=== PATIENT | male | born 1980 | race Caucasian/White ===

== ENCOUNTER 2016-06-26 14:28 | Emergency (ER) | payer MEDICARE, MEDICAID ==
[2016-06-26 14:43] VITALS: BP 136/82
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
[2016-06-26] MEDS ORDERED: diphenhydrAMINE 50 MG/ML SDV IM ONE (16:13)
[2016-06-26] MEDS ORDERED: Haloperidol Lactate 5 MG/ML SDV IM ONE (16:14)
[2016-06-26] MEDS ORDERED: LORazepam 2 MG/ML MDV IM ONE (16:15)
--- NOTE | 2016-06-28 09:19 | CONS ---
DATE OF SERVICE: 06/26/2016 REFERRING PHYSICIAN: CONSULTING PHYSICIAN: Didier Mcgregor MD This is a 60-minute emergency room clinical event. IDENTIFICATION: The patient is a 35-year-old male, who presents to the [facility] Emergency Room in [place], [place], on June 26, 2016. He is seen for psychiatric consultation after being evaluated by emergency room staff. CHIEF COMPLAINT: "I have got PTSD. Issues with someone that was being unprofessional in the work place." HISTORY OF PRESENT ILLNESS: The patient is a 35-year-old male who, according to staff, has a long history of mental illness, who has been off his psychiatric medications for the past month now. He is brought in by law enforcement on a voluntary basis after his [facility] worker had become concerned upon a visit to his house that he had not been thinking or acting correctly. On initial interview with the emergency room staff, the patient is stating that he does not feel that he will get a thorough evaluation and is requesting additional consultation. On additional consultation, the patient is stating that he has not "slept in like 3 days." He also states that he has been using marijuana and observes "I don't think that is illegal in [place], is it?" He states he has had a lot of stressors that have been preventing him from sleeping and also has been using marijuana. He states that he is supposed to be taking some psychiatric medications because "some people think that I need that," but he does state that he has not taken these medications in over a month. He denies being suicidal or homicidal. He does endorse a lot of racing thoughts, and he states that sometimes he can get pretty suspicious and paranoid, but he feels that it is with good reason. He is not really sure of the date when asked, and he is not able to provide many more answers when I asked him. He begins to ask questions back to the provider. When asked about his age, he is stating "well, how old do you think I am." When asked about the date, he is stating "well, what date do you think it is." Labs came back normal according to emergency room staff with the exception of positive cannabis on the patient's drug screen. MEDICATIONS: Medication at the time of presentation: 1. Latuda 60 mg daily. 2. Depakote 1000 mg daily. 3. BuSpar 10 mg b.i.d., but again the patient is stating that he has not taken these medications in over a month. ALLERGIES: 1. RISPERDAL. 2. WHEAT. PAST MEDICAL HISTORY: The patient reports a remote past history of a right leg fracture. REVIEW OF SYSTEMS: Asides from musculoskeletal, all other major organ systems are negative at this point in time for any acute difficulties or complications. FAMILY PSYCHIATRIC AND CD HISTORY: None reported. PAST PSYCHIATRIC AND CD HISTORY: The patient is reporting some past psychiatric hospitalizations, but nothing specific. Past psychiatric medication history is positive as well, but again specific is not provided. Past psychiatricdiagnosis appears including bipolar affective disease and schizophrenia according to emergency room staff. SOCIAL HISTORY: The patient does not provide any much social history. He states he is originally from [place], [place], and lives in [place] by himself and does have [facility] workers who visit him regularly. MENTAL STATUS EXAM: The patient is a 35-year-old white male in no apparent distress, increased latency of response, shortened duration of utterance. Psychomotor activity is within normal limits. There are no abnormal motor movements or tics observed. Gait and station are not observed. This patient is seated at the time of the interview. The patient is alert and oriented x2 to person and place, but not specifically to day and date, although, he does know month and year. The mood is tired. Affect is quite guarded. There is no behavioral or stated evidence of acute suicidal or homicidal ideation. Thought content is significant for paranoid themes. There is no alexa psychoses that is evidenced or reported. Thought processes are significant for racing thoughts and disorganization. The patient does display some irritability on interview, but no florid manic symptoms or loose associations. Judgement and insight appear impaired at this point in time secondary to his likely medication noncompliance in the face of cannabis use. Motivation for help is poor. PHYSICAL EXAMINATION: Vital signs are stable at the time of admission. IMPRESSION: Aurora I: 1. Schizophrenia, paranoid type, F20. 2. Psychosis, not otherwise specified, F29. 3. Anxiety disorder, not otherwise specified, F41.9. 4. Rule out bipolar affective disease, manic type, F31. Aurora II: No diagnosis at this time. Aurora III: Remote past history of right leg fracture per the patient's report. Aurora IV: Severe. Aurora V: 50 to 55. PLAN: 1. Recommend that when the patient is deemed fully medically stable, transfer the patient to inpatient psychiatric unit for further psychiatric stabilization and medication management. 2. I do feel that the patient is able to be placed on hold if need be to obtain goal #1 of transferring the patient to inpatient psychiatry when medically stable as he does appear to be a danger to himself and others at this point in time, and in terms of his inability to process clearly and his paranoia. 3. Sobriety. 4. Would recommend resuming the patient's psychiatry medications and restarting those meds if deemed appropriate by inpatient psychiatric staff going forward. 5. Recommended when the patient is psychiatrically stabilized on inpatient psychiatry unit, discharge back to community with followup with outpatient psychiatry schedule. 6. We will continue to follow up with the patient on an as-needed basis while he remains in the [facility] Emergency Room. 7. We will follow up with the patient sooner if any complications in the interim. 8. Crisis plan is in place. Didier Mcgregor MD /[id number]
== END 2016-06-26 17:15 ==
LOC: JP.ED 14:28
DX: F20.0 Paranoid schizophrenia (principal); F17.210 Nicotine dependence, cigarettes, uncomplicated; G43.909 Migraine, unspecified, not intractable, without status migrainosus; F90.9 Attention-deficit hyperactivity disorder, unspecified type; E21.3 Hyperparathyroidism, unspecified; Z79.82 Long term (current) use of aspirin; Z91.14 Patient's other noncompliance with medication regimen; Z79.899 Other long term (current) drug therapy; Z91.018 Allergy to other foods; Z88.8 Allergy status to other drugs, medicaments and biological substances
CPT/HCPCS: 36415; 80053; 80305; 81001; 85025; 96372; 99284; 99285; G0480; J1200; J1630; J2060; Q3014

== ENCOUNTER 2017-07-20 14:57 | Emergency (ER) | payer MEDICARE, MEDICAID ==
[2017-07-20 15:15] VITALS: BP 146/95
[2017-07-20] MEDS ORDERED: Acetaminophen/oxyCODONE 325-5 MG Tab PO ONE (15:23)
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
--- NOTE | 2017-07-21 09:39 | CR ---
Ankle Min 3V Lt INDICATION: pain and swelling in the lft ankle. COMPARISON: None FINDINGS: 3 views. There may be an age-indeterminate fracture of the lateral process of the talus. No other fractures seen. If symptoms persist, CT ankle would be helpful.
== END 2017-07-20 17:04 | disposition home or self-care (01) ==
LOC: JP.ED 14:57
DX: S93.402A Sprain of unspecified ligament of left ankle, initial encounter (principal); F17.210 Nicotine dependence, cigarettes, uncomplicated; Z88.8 Allergy status to other drugs, medicaments and biological substances; Z91.018 Allergy to other foods; Y93.39 Activity, other involving climbing, rappelling and jumping off
CPT/HCPCS: 36415; 73610; 80053; 80164; 85025; 99284; A9270; G0480

== ENCOUNTER 2018-09-20 20:23 | Emergency (ER) | payer MEDICARE, MEDICAID ==
[2018-09-20 20:40] VITALS: BP 143/88; PULSE 93
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
[2018-09-20] MEDS ORDERED: Lurasidone 40 MG Tab PO ONE (22:26)
[2018-09-21] MEDS ORDERED: Lurasidone 40 MG Tab PO ONE (22:08)
== END 2018-09-21 13:15 | disposition home or self-care (01) ==
LOC: JP.ED 20:23
DX: F20.9 Schizophrenia, unspecified (principal); F17.210 Nicotine dependence, cigarettes, uncomplicated; Z88.8 Allergy status to other drugs, medicaments and biological substances; Z79.899 Other long term (current) drug therapy
CPT/HCPCS: 36415; 80053; 80305; 81003; 85025; 99284; A9270

== ENCOUNTER 2018-09-22 15:25 | Emergency (ER) | payer MEDICARE, MEDICAID ==
[2018-09-22 16:14] VITALS: BP 139/88; PULSE 65
--- NOTE | 2018-09-22 16:19 | EDM.PDOCBH ---
ED HPI GENERAL MEDICAL PROBLEM - General Chief Complaint: Behavioral/Psych Stated Complaint: SUCIDAL THOUGHTS Time Seen by Provider: 09/22/18 16:14 Source of Information: Reports: Patient, RN Notes Reviewed History Limitations: Reports: No Limitations - History of Present Illness INITIAL COMMENTS - FREE TEXT/NARRATIVE: 37-year-old gentleman presents emergency department today with complaint of suicidal attempt by drug ingestion, he was in the emergency department 3 days prior for suicidal ideation he does have a known history of paranoid schizophrenia. Ever urine drug screen found to have methamphetamine on board he did admit to using methamphetamine after he was sober he stated he did not want to harm himself he is currently homeless. Did have appointments with [facility] [place] well as manager social media while he was at [facility] today he states he wanted to harm himself. Admitted to nursing staff that he took some look to do that he had found these were his own medications he found in his backpack estimated 20 mg size 20-25 tablets approximately 4-500 mg dose. He states he took this medication around 1:00 in the afternoon this is 3 hours prior did contact poison control only concern was tachycardia he is past the peak of the medication - Related Data Allergies Allergy/AdvReac Type Severity Reaction Status Date / Time risperidone [From Risperdal] Allergy Rash Verified 07/20/17 15:21 metal Allergy Cannot Uncoded 09/20/18 20:35 Remember Home Meds: Home Meds ClonazePAM [KlonoPIN] 1 mg PO BID PRN 09/20/18 [History] Gabapentin [Neurontin] 300 mg PO QID 09/20/18 [History] Lurasidone HCl [Latuda] 20 mg PO DAILY 09/20/18 [History] Past Medical History Gastrointestinal History: Reports: Other (See Below) Other Gastrointestinal History: states chrons Musculoskeletal History: Reports: Fracture Other Musculoskeletal History: ankle Neurological History: Reports: Concussion, Migraines Psychiatric History: Reports: ADHD, Anxiety, Bipolar, Depression, Mood Swings, Panic Attack, Psych Hospitalization(s), Psychosis, Schizophrenia, Suicidal Ideation Endocrine/Metabolic History: Reports: Hyperparathyroidism Hematologic History: Reports: Anemia - Infectious Disease History Infectious Disease History: Reports: Other (See Below) Other Infectious Disease History: unknown - Past Surgical History GI Surgical History: Reports: Hernia Repair/Other Social & Family History - Tobacco Use Smoking Status *Q: Current Every Day Smoker Years of Tobacco use: 13 Packs/Tins Daily: 1 - Caffeine Use Caffeine Use: Reports: Coffee, Soda - Recreational Drug Use Recreational Drug Use: Yes Recreational Drug Type: Reports: Methamphetamine ED ROS GENERAL - Review of Systems Review Of Systems: Unable To Obtain ED EXAM, BEHAVIORAL HEALTH - Physical Exam Exam: See Below Text/Narrative:: Minimally communicative with me does admit to wanting to harm himself does admit to ingestion of medications does admit to being homeless Exam Limited By: No Limitations General Appearance: Alert, WD/WN, No Apparent Distress Respiratory/Chest: Lungs Clear Cardiovascular: Regular Rate, Rhythm, No Murmur COURSE, BEHAVIORAL HEALTH COMP - Course Vital Signs: Last Vital Signs Temp 97.0 F 09/22/18 16:05 Pulse 65 09/22/18 16:05 Resp 16 09/22/18 16:05 BP 139/88 09/22/18 16:05 Pulse Ox 100 09/22/18 16:05 Orders, Labs, Meds: Active Orders 24 hr Category Date Time Status EKG Documentation Completion [RC] ASDIRECTED Care 09/22/18 16:20 Active EKG 12 Lead [EK] Urgent Ther 09/22/18 16:19 Ordered Laboratory Tests 09/22/18 09/22/18 09/22/18 Range/Units 16:38 16:38 16:38 WBC 8.6 (4.5-11.0) K/uL RBC 4.94 (4.30-5.90) M/uL Hgb 14.9 (12.0-15.0) g/dL Hct 44.0 (40.0-54.0) % MCV 89 (80-98) fL MCH 30 (27-31) pg MCHC 34 (32-36) % Plt Count 303 (150-400) K/uL Neut % (Auto) 62 (36-66) % Lymph % (Auto) 25 (24-44) % Ripley % (Auto) 8 H (2-6) % Eos % (Auto) 4 (2-4) % Baso % (Auto) 1 (0-1) % Sodium 143 (140-148) mmol/L Potassium 3.6 (3.6-5.2) mmol/L Chloride 108 (100-108) mmol/L Carbon Dioxide 31 (21-32) mmol/L Anion Gap 3.8 L (5.0-14.0) mmol/L BUN 7 (7-18) mg/dL Creatinine 0.7 L (0.8-1.3) mg/dL Est Cr Clr Drug Dosing 147.74 mL/min Estimated GFR (MDRD) > 60 (>60) Glucose 97 (74-106) mg/dL Lactic Acid (0.4-2.0) mmol/L Calcium 8.9 (8.5-10.1) mg/dL Total Bilirubin 0.3 (0.2-1.0) mg/dL AST 17 (15-37) U/L ALT 31 (12-78) U/L Alkaline Phosphatase 87 (46-116) U/L Ammonia 37 H (11-32) mmol/L Total Protein 6.7 (6.4-8.2) g/dL Albumin 3.5 (3.4-5.0) g/dL Globulin 3.2 (2.3-3.5) g/dL Albumin/Globulin Ratio 1.1 L (1.2-2.2) TSH, Ultra Sensitive 1.536 (0.358-3.740) uIU/mL Salicylates (2.0-20.0) mg/dL Urine Opiates Screen (NEGATIVE) Ur Oxycodone Screen (NEGATIVE) Urine Methadone Screen (NEGATIVE) Ur Propoxyphene Screen (NEGATIVE) Acetaminophen < 2.0 L (10.0-30.0) ug/mL Ur Barbiturates Screen (NEGATIVE) Ur Tricyclics Screen (NEGATIVE) Ur Phencyclidine Scrn (NEGATIVE) Ur Amphetamine Screen (NEGATIVE) U Methamphetamines Scrn (NEGATIVE) Urine MDMA Screen (NEGATIVE) U Benzodiazepines Scrn (NEGATIVE) U Cocaine Metab Screen (NEGATIVE) U Marijuana (THC) Screen (NEGATIVE) Ethyl Alcohol mg/dL 09/22/18 09/22/18 09/22/18 Range/Units 16:38 16:38 16:38 WBC (4.5-11.0) K/uL RBC (4.30-5.90) M/uL Hgb (12.0-15.0) g/dL Hct (40.0-54.0) % MCV (80-98) fL MCH (27-31) pg MCHC (32-36) % Plt Count (150-400) K/uL Neut % (Auto) (36-66) % Lymph % (Auto) (24-44) % Ripley % (Auto) (2-6) % Eos % (Auto) (2-4) % Baso % (Auto) (0-1) % Sodium (140-148) mmol/L Potassium (3.6-5.2) mmol/L Chloride (100-108) mmol/L Carbon Dioxide (21-32) mmol/L Anion Gap (5.0-14.0) mmol/L BUN (7-18) mg/dL Creatinine (0.8-1.3) mg/dL Est Cr Clr Drug Dosing mL/min Estimated GFR (MDRD) (>60) Glucose (74-106) mg/dL Lactic Acid 1.3 (0.4-2.0) mmol/L Calcium (8.5-10.1) mg/dL Total Bilirubin (0.2-1.0) mg/dL AST (15-37) U/L ALT (12-78) U/L Alkaline Phosphatase (46-116) U/L Ammonia (11-32) mmol/L Total Protein (6.4-8.2) g/dL Albumin (3.4-5.0) g/dL Globulin (2.3-3.5) g/dL Albumin/Globulin Ratio (1.2-2.2) TSH, Ultra Sensitive (0.358-3.740) uIU/mL Salicylates 3.9 (2.0-20.0) mg/dL Urine Opiates Screen (NEGATIVE) Ur Oxycodone Screen (NEGATIVE) Urine Methadone Screen (NEGATIVE) Ur Propoxyphene Screen (NEGATIVE) Acetaminophen (10.0-30.0) ug/mL Ur Barbiturates Screen (NEGATIVE) Ur Tricyclics Screen (NEGATIVE) Ur Phencyclidine Scrn (NEGATIVE) Ur Amphetamine Screen (NEGATIVE) U Methamphetamines Scrn (NEGATIVE) Urine MDMA Screen (NEGATIVE) U Benzodiazepines Scrn (NEGATIVE) U Cocaine Metab Screen (NEGATIVE) U Marijuana (THC) Screen (NEGATIVE) Ethyl Alcohol < 3 mg/dL 09/22/18 Range/Units 17:30 WBC (4.5-11.0) K/uL RBC (4.30-5.90) M/uL Hgb (12.0-15.0) g/dL Hct (40.0-54.0) % MCV (80-98) fL MCH (27-31) pg MCHC (32-36) % Plt Count (150-400) K/uL Neut % (Auto) (36-66) % Lymph % (Auto) (24-44) % Ripley % (Auto) (2-6) % Eos % (Auto) (2-4) % Baso % (Auto) (0-1) % Sodium (140-148) mmol/L Potassium (3.6-5.2) mmol/L Chloride (100-108) mmol/L Carbon Dioxide (21-32) mmol/L Anion Gap (5.0-14.0) mmol/L BUN (7-18) mg/dL Creatinine (0.8-1.3) mg/dL Est Cr Clr Drug Dosing mL/min Estimated GFR (MDRD) (>60) Glucose (74-106) mg/dL Lactic Acid (0.4-2.0) mmol/L Calcium (8.5-10.1) mg/dL Total Bilirubin (0.2-1.0) mg/dL AST (15-37) U/L ALT (12-78) U/L Alkaline Phosphatase (46-116) U/L Ammonia (11-32) mmol/L Total Protein (6.4-8.2) g/dL Albumin (3.4-5.0) g/dL Globulin (2.3-3.5) g/dL Albumin/Globulin Ratio (1.2-2.2) TSH, Ultra Sensitive (0.358-3.740) uIU/mL Salicylates (2.0-20.0) mg/dL Urine Opiates Screen Negative (NEGATIVE) Ur Oxycodone Screen Negative (NEGATIVE) Urine Methadone Screen Negative (NEGATIVE) Ur Propoxyphene Screen Negative (NEGATIVE) Acetaminophen (10.0-30.0) ug/mL Ur Barbiturates Screen Negative (NEGATIVE) Ur Tricyclics Screen Negative (NEGATIVE) Ur Phencyclidine Scrn Negative (NEGATIVE) Ur Amphetamine Screen Negative (NEGATIVE) U Methamphetamines Scrn Negative (NEGATIVE) Urine MDMA Screen Negative (NEGATIVE) U Benzodiazepines Scrn Negative (NEGATIVE) U Cocaine Metab Screen Negative (NEGATIVE) U Marijuana (THC) Screen Negative (NEGATIVE) Ethyl Alcohol mg/dL Departure - Departure Time of Disposition: 18:55 Disposition: DC/Tfer to Psych Hosp/Unit [facility] Condition: Poor Clinical Impression: Suicide attempt by drug ingestion Qualifiers: Encounter type: initial encounter Qualified Code(s): T50.902A - Poisoning by unspecified drugs, medicaments and biological substances, intentional self-harm , initial encounter - Discharge Information Referrals: PCP,None [Primary Care Provider] - Forms: ED Department Discharge - My Orders Last 24 Hours: My Active Orders 09/22/18 16:19 EKG 12 Lead [EK] Urgent 09/22/18 16:20 EKG Documentation Completion [RC] ASDIRECTED - Assessment/Plan Last 24 Hours: My Active Orders 09/22/18 16:19 EKG 12 Lead [EK] Urgent 09/22/18 16:20 EKG Documentation Completion [RC] ASDIRECTED Plan: Assessment Acuity = acute Site and laterality = suicidal attempt by drug ingestion Etiology = probable medical compliance with history of schizophrenia Manifestations = none Location of injury = Home Lab values = CBC, CMP, urinalysis unremarkable Plan Acceptance was gained [facility] will be transported via psychiatric ground This note was dictated using [employer] voice recognition software please call with any questions on syntax or grammar.
[2018-09-22 17:16] LABS: ACETAMINOPHEN < 2.0 ug/mL (10.0-30.0)
== END 2018-09-22 20:59 ==
LOC: JP.ED 15:25
DX: T50.902A Poisoning by unspecified drugs, medicaments and biological substances, intentional self-harm, initial encounter (principal); F17.210 Nicotine dependence, cigarettes, uncomplicated; Z91.09 Other allergy status, other than to drugs and biological substances; Z88.8 Allergy status to other drugs, medicaments and biological substances; R00.0 Tachycardia, unspecified
CPT/HCPCS: 36415; 80053; 80305; 82140; 83605; 84443; 85025; 93005; 93010; 99284; 99285; G0480

== ENCOUNTER 2018-12-25 13:00 | Emergency (ER) | payer MEDICARE, MEDICAID ==
[2018-12-25 13:36] VITALS: BP 126/92; PULSE 86
[2018-12-25] MEDS ORDERED: Ibuprofen 600 MG Tab PO ONE (14:02)
--- NOTE | 2018-12-25 14:03 | EDM.PDOC ---
<OfficerRic - Last Filed: 12/25/18 17:28> ED HPI GENERAL MEDICAL PROBLEM - General Chief Complaint: Lower Extremity Injury/Pain Stated Complaint: ANKLE PAIN?? Time Seen by Provider: 12/25/18 13:50 Source of Information: Reports: Patient, RN Notes Reviewed History Limitations: Reports: No Limitations - History of Present Illness INITIAL COMMENTS - FREE TEXT/NARRATIVE: 38-year-old gentleman presents to the emergency department today complaint of left ankle pain, he has been staying in the lobby for the last 2 days he is currently homeless he is a known schizophrenic and has been off his medications. He denies any suicidal or homicidal ideation at this time. His very flat affect slow to respond and difficult to obtain history or review of systems from him. - Related Data Allergies Allergy/AdvReac Type Severity Reaction Status Date / Time risperidone [From Risperdal] Allergy Rash Verified 12/25/18 13:16 metal Allergy Cannot Uncoded 12/25/18 13:16 Remember Home Meds: Home Meds NK [No Known Home Meds] 12/25/18 [History] Past Medical History Gastrointestinal History: Reports: Other (See Below) Other Gastrointestinal History: states chrons Musculoskeletal History: Reports: Fracture Other Musculoskeletal History: ankle Neurological History: Reports: Concussion, Migraines Psychiatric History: Reports: ADHD, Anxiety, Bipolar, Depression, Mood Swings, Panic Attack, Psych Hospitalization(s), Psychosis, Schizophrenia, Suicidal Ideation Endocrine/Metabolic History: Reports: Hyperparathyroidism Hematologic History: Reports: Anemia - Infectious Disease History Infectious Disease History: Reports: Other (See Below) Other Infectious Disease History: unknown - Past Surgical History GI Surgical History: Reports: Hernia Repair/Other Social & Family History - Tobacco Use Smoking Status *Q: Current Every Day Smoker Years of Tobacco use: 15 Packs/Tins Daily: 0.5 - Caffeine Use Caffeine Use: Reports: Coffee, Soda Review of Systems - Review of Systems Review Of Systems: Unable To Obtain ED EXAM, GENERAL - Physical Exam Exam: See Below Exam Limited By: No Limitations General Appearance: Alert, No Apparent Distress Extremities: Normal Inspection, Normal Range of Motion, Non-Tender, No Pedal Edema Psychiatric: Flat Affect Course - Vital Signs Last Recorded V/S: Last Vital Signs Temp 96.8 F 12/25/18 13:24 Pulse 86 12/25/18 13:24 Resp 14 12/25/18 13:24 BP 126/92 H 12/25/18 13:24 Pulse Ox 96 12/25/18 13:24 - Orders/Labs/Meds Labs: Laboratory Tests 12/25/18 12/25/18 12/25/18 Range/Units 17:21 17:21 20:08 WBC 7.8 (4.5-11.0) K/uL RBC 5.33 (4.30-5.90) M/uL Hgb 15.9 H (12.0-15.0) g/dL Hct 48.4 (40.0-54.0) % MCV 91 (80-98) fL MCH 30 (27-31) pg MCHC 33 (32-36) % Plt Count 346 (150-400) K/uL Neut % (Auto) 57 (36-66) % Lymph % (Auto) 28 (24-44) % [place] % (Auto) 11 H (2-6) % Eos % (Auto) 2 (2-4) % Baso % (Auto) 2 H (0-1) % Sodium 138 L (140-148) mmol/L Potassium 3.8 (3.6-5.2) mmol/L Chloride 102 (100-108) mmol/L Carbon Dioxide 30 (21-32) mmol/L Anion Gap 9.8 (5.0-14.0) mmol/L BUN 14 D (7-18) mg/dL Creatinine 0.9 (0.8-1.3) mg/dL Est Cr Clr Drug Dosing 98.98 mL/min Estimated GFR (MDRD) > 60 (>60) Glucose 108 H (74-106) mg/dL Calcium 9.2 (8.5-10.1) mg/dL Total Bilirubin 1.1 H D (0.2-1.0) mg/dL AST 19 (15-37) U/L ALT 22 (12-78) U/L Alkaline Phosphatase 103 (46-116) U/L Total Protein 8.2 (6.4-8.2) g/dL Albumin 4.5 (3.4-5.0) g/dL Globulin 3.7 H (2.3-3.5) g/dL Albumin/Globulin Ratio 1.2 (1.2-2.2) TSH, Ultra Sensitive 0.625 (0.358-3.740) uIU/mL Urine Color Yellow (YELLOW) Urine Appearance Slightly cloudy A (CLEAR) Urine pH 6.0 (5.0-8.0) Ur Specific [place] >= 1.030 (1.008-1.030) Urine Protein Negative (NEGATIVE) mg/dL Urine Glucose (UA) Negative (NEGATIVE) mg/dL Urine Ketones Trace H (NEGATIVE) mg/dL Urine Occult Blood Negative (NEGATIVE) Urine Nitrite Negative (NEGATIVE) Urine Bilirubin Negative (NEGATIVE) Urine Urobilinogen 0.2 (0.2-1.0) EU/dL Ur Leukocyte Esterase Negative (NEGATIVE) Urine RBC 0-5 (0-5) Urine WBC Not seen (0-5) Ur Epithelial Cells Not seen Amorphous Sediment Not seen Urine Bacteria Rare Urine Mucus Many Urine Opiates Screen (NEGATIVE) Ur Oxycodone Screen (NEGATIVE) Urine Methadone Screen (NEGATIVE) Ur Propoxyphene Screen (NEGATIVE) Ur Barbiturates Screen (NEGATIVE) Ur Tricyclics Screen (NEGATIVE) Ur Phencyclidine Scrn (NEGATIVE) Ur Amphetamine Screen (NEGATIVE) U Methamphetamines Scrn (NEGATIVE) Urine MDMA Screen (NEGATIVE) U Benzodiazepines Scrn (NEGATIVE) U Cocaine Metab Screen (NEGATIVE) U Marijuana (THC) Screen (NEGATIVE) 12/25/18 Range/Units 20:08 WBC (4.5-11.0) K/uL RBC (4.30-5.90) M/uL Hgb (12.0-15.0) g/dL Hct (40.0-54.0) % MCV (80-98) fL MCH (27-31) pg MCHC (32-36) % Plt Count (150-400) K/uL Neut % (Auto) (36-66) % Lymph % (Auto) (24-44) % [place] % (Auto) (2-6) % Eos % (Auto) (2-4) % Baso % (Auto) (0-1) % Sodium (140-148) mmol/L Potassium (3.6-5.2) mmol/L Chloride (100-108) mmol/L Carbon Dioxide (21-32) mmol/L Anion Gap (5.0-14.0) mmol/L BUN (7-18) mg/dL Creatinine (0.8-1.3) mg/dL Est Cr Clr Drug Dosing mL/min Estimated GFR (MDRD) (>60) Glucose (74-106) mg/dL Calcium (8.5-10.1) mg/dL Total Bilirubin (0.2-1.0) mg/dL AST (15-37) U/L ALT (12-78) U/L Alkaline Phosphatase (46-116) U/L Total Protein (6.4-8.2) g/dL Albumin (3.4-5.0) g/dL Globulin (2.3-3.5) g/dL Albumin/Globulin Ratio (1.2-2.2) TSH, Ultra Sensitive (0.358-3.740) uIU/mL Urine Color (YELLOW) Urine Appearance (CLEAR) Urine pH (5.0-8.0) Ur Specific [place] (1.008-1.030) Urine Protein (NEGATIVE) mg/dL Urine Glucose (UA) (NEGATIVE) mg/dL Urine Ketones (NEGATIVE) mg/dL Urine Occult Blood (NEGATIVE) Urine Nitrite (NEGATIVE) Urine Bilirubin (NEGATIVE) Urine Urobilinogen (0.2-1.0) EU/dL Ur Leukocyte Esterase (NEGATIVE) Urine RBC (0-5) Urine WBC (0-5) Ur Epithelial Cells Amorphous Sediment Urine Bacteria Urine Mucus Urine Opiates Screen Negative (NEGATIVE) Ur Oxycodone Screen Negative (NEGATIVE) Urine Methadone Screen Negative (NEGATIVE) Ur Propoxyphene Screen Negative (NEGATIVE) Ur Barbiturates Screen Negative (NEGATIVE) Ur Tricyclics Screen Negative (NEGATIVE) Ur Phencyclidine Scrn Negative (NEGATIVE) Ur Amphetamine Screen Negative (NEGATIVE) U Methamphetamines Scrn Negative (NEGATIVE) Urine MDMA Screen Negative (NEGATIVE) U Benzodiazepines Scrn Negative (NEGATIVE) U Cocaine Metab Screen Negative (NEGATIVE) U Marijuana (THC) Screen Presumptive positive H (NEGATIVE) Meds: Medications Discontinued Medications Generic Name Dose Route Start Last Admin Trade Name Freq PRN Reason Stop Dose Admin Ibuprofen 600 mg 12/25/18 14:02 12/25/18 14:52 Motrin PO 12/25/18 14:03 600 mg ONETIME ONE Administration - Re-Assessments/Exams Free Text/Narrative Re-Assessment/Exam: 12/25/18 17:28 During the course of his evaluation he does admit that he is having auditory hallucinations he does admit that he would like to have placement for psychiatric help., He is currently homeless and off his medications at this time Departure - Departure Disposition: Eloped 07 Clinical Impression: Poor compliance with medication, Schizophrenia - Discharge Information Referrals: PCP,None [Primary Care Provider] - Forms: ED Department Discharge <Helder Gardner - Last Filed: 12/26/18 03:38> Course - Re-Assessments/Exams Free Text/Narrative Re-Assessment/Exam: 12/25/18 20:46 Care turned over from Officer pending urine drug screen. It is positive only for marijuana. This patient will need placement for psychiatric stabilization, as he is a noncompliant schizophrenic with depression and is not caring for himself, homeless. He needs to restart his medications and will only do so in an inpatient setting. 12/26/18 03:37 While awaiting for confirmation from inpatient psychiatric facilities, the patient eloped. Departure - Departure Time of Disposition: 01:48
== END 2018-12-26 01:48 | disposition left against medical advice (07) ==
LOC: JP.ED 13:00
DX: F20.9 Schizophrenia, unspecified (principal); Z91.14 Patient's other noncompliance with medication regimen; F17.210 Nicotine dependence, cigarettes, uncomplicated; Z88.8 Allergy status to other drugs, medicaments and biological substances; Z91.048 Other nonmedicinal substance allergy status
CPT/HCPCS: 36415; 80053; 80305; 81001; 84443; 85025; 99283; A9270

== ENCOUNTER 2018-12-30 10:02 | Emergency (ER) | payer MEDICARE, MEDICAID ==
--- NOTE | 2018-12-30 11:00 | EDM.PDOC ---
ED HPI GENERAL MEDICAL PROBLEM - General Chief Complaint: Behavioral/Psych Stated Complaint: MENTAL EVEL Time Seen by Provider: 12/30/18 10:18 Source of Information: Reports: Patient, RN Notes Reviewed History Limitations: Reports: No Limitations - History of Present Illness INITIAL COMMENTS - FREE TEXT/NARRATIVE: 38-year-old gentleman known history of schizophrenia off medications presents to the emergency department today stating help. He denies any suicidal or homicidal ideation states he has been hearing auditory hallucinations, admits to being homeless and struggles with daily function. He is willing to go for treatment and willing to start his psychiatric medications again Left Feet Pain Score (Numeric/FACES): 4 - Related Data Allergies Allergy/AdvReac Type Severity Reaction Status Date / Time risperidone [From Risperdal] Allergy Rash Verified 12/25/18 13:16 metal Allergy Cannot Uncoded 12/25/18 13:16 Remember Home Meds: Home Meds NK [No Known Home Meds] 12/25/18 [History] Past Medical History Gastrointestinal History: Reports: Other (See Below) Other Gastrointestinal History: states chrons Musculoskeletal History: Reports: Fracture Other Musculoskeletal History: ankle Neurological History: Reports: Concussion, Migraines Psychiatric History: Reports: ADHD, Anxiety, Bipolar, Depression, Mood Swings, Panic Attack, Psych Hospitalization(s), Psychosis, Schizophrenia, Suicidal Ideation Endocrine/Metabolic History: Reports: Hyperparathyroidism Hematologic History: Reports: Anemia - Infectious Disease History Infectious Disease History: Reports: Other (See Below) Other Infectious Disease History: unknown - Past Surgical History GI Surgical History: Reports: Hernia Repair/Other Social & Family History - Caffeine Use Caffeine Use: Reports: Coffee, Soda - Recreational Drug Use Recreational Drug Type: Reports: Marijuana/Hashish ED ROS GENERAL - Review of Systems Review Of Systems: See Below Constitutional: Reports: No Symptoms HEENT: Reports: No Symptoms Respiratory: Reports: No Symptoms Cardiovascular: Reports: No Symptoms GI/Abdominal: Reports: No Symptoms Psychiatric: Reports: Depression, Hallucinations. Denies: Agitation, Anxiety, Confusion, Homicidal Ideation, Suicidal Ideation ED EXAM, GENERAL - Physical Exam Exam: See Below Free Text/Narrative:: Orientated to person place and time, appropriately dressed, poorly groomed, memory to recent and remote events intact, poor attention and concentration, speech is of slow rate normal tone and volume, good fund of knowledge, language is appropriate, Mood and affect are depressed, no pressured thoughts, denies suicidal ideation, denies homicidal ideation, positive for hallucinations auditory a barking dog tone and what to do, poor judgment, poor insight Exam Limited By: No Limitations General Appearance: Alert, WD/WN, No Apparent Distress Respiratory/Chest: No Respiratory Distress, Lungs Clear, Normal Breath Sounds, No Accessory Muscle Use, Chest Non-Tender Cardiovascular: Regular Rate, Rhythm, No Murmur Course - Vital Signs Last Recorded V/S: Last Vital Signs Temp 98.5 F 12/30/18 15:32 Pulse 85 12/30/18 15:32 Resp 13 12/30/18 15:32 BP 115/77 12/30/18 15:32 Pulse Ox 95 12/30/18 15:32 - Orders/Labs/Meds Labs: Laboratory Tests 12/30/18 12/30/18 12/30/18 Range/Units 11:02 11:02 12:50 WBC 7.8 (4.5-11.0) K/uL RBC 5.07 (4.30-5.90) M/uL Hgb 15.5 H (12.0-15.0) g/dL Hct 46.0 (40.0-54.0) % MCV 91 (80-98) fL MCH 31 (27-31) pg MCHC 34 (32-36) % Plt Count 312 (150-400) K/uL Neut % (Auto) 65 (36-66) % Lymph % (Auto) 23 L (24-44) % [place] % (Auto) 8 H (2-6) % Eos % (Auto) 3 (2-4) % Baso % (Auto) 1 (0-1) % Sodium 140 (140-148) mmol/L Potassium 3.8 (3.6-5.2) mmol/L Chloride 103 (100-108) mmol/L Carbon Dioxide 27 (21-32) mmol/L Anion Gap 10.5 (5.0-14.0) mmol/L BUN 10 (7-18) mg/dL Creatinine 0.9 (0.8-1.3) mg/dL Est Cr Clr Drug Dosing 110.20 mL/min Estimated GFR (MDRD) > 60 (>60) Glucose 93 (74-106) mg/dL Calcium 9.0 (8.5-10.1) mg/dL Total Bilirubin 0.5 D (0.2-1.0) mg/dL AST 18 (15-37) U/L ALT 19 (12-78) U/L Alkaline Phosphatase 87 (46-116) U/L Total Protein 7.3 (6.4-8.2) g/dL Albumin 3.9 (3.4-5.0) g/dL Globulin 3.4 (2.3-3.5) g/dL Albumin/Globulin Ratio 1.1 L (1.2-2.2) Urine Opiates Screen Negative (NEGATIVE) Ur Oxycodone Screen Negative (NEGATIVE) Urine Methadone Screen Negative (NEGATIVE) Ur Propoxyphene Screen Negative (NEGATIVE) Ur Barbiturates Screen Negative (NEGATIVE) Ur Tricyclics Screen Negative (NEGATIVE) Ur Phencyclidine Scrn Negative (NEGATIVE) Ur Amphetamine Screen Negative (NEGATIVE) U Methamphetamines Scrn Negative (NEGATIVE) Urine MDMA Screen Negative (NEGATIVE) U Benzodiazepines Scrn Negative (NEGATIVE) U Cocaine Metab Screen Negative (NEGATIVE) U Marijuana (THC) Screen Negative (NEGATIVE) Departure - Departure Time of Disposition: 18:40 Disposition: DC/Tfer to Psych Hosp/Unit 65 Condition: Poor Clinical Impression: Schizophrenia - Discharge Information Referrals: PCP,None [Primary Care Provider] - Forms: ED Department Discharge - Assessment/Plan Plan: Assessment Acuity = acute Site and laterality = schizophrenic off medications with auditory hallucinations Etiology = medical compliance Manifestations = none Location of injury = Home Lab values = CBC, CMP unremarkable urine drug screen negative Plan Except at [facility] unit will be transported via EMS services This note was dictated using [employer] voice recognition software please call with any questions on syntax or grammar.
[2018-12-30 15:32] VITALS: BP 115/77; PULSE 85
== END 2018-12-30 20:18 ==
LOC: JP.ED 10:02
DX: F20.9 Schizophrenia, unspecified (principal); Z88.8 Allergy status to other drugs, medicaments and biological substances; Z91.048 Other nonmedicinal substance allergy status
CPT/HCPCS: 36415; 80053; 80305-QW; 85025; 99284; 99285

== ENCOUNTER 2019-12-16 19:54 | Emergency (ER) | payer MEDICARE, MEDICAID ==
--- NOTE | 2019-12-16 22:04 | EDM.PDOCBH ---
ED HPI GENERAL MEDICAL PROBLEM - General Chief Complaint: Behavioral/Psych Stated Complaint: MEDICAL VIA [facility] Time Seen by Provider: 12/16/19 20:20 Source of Information: Reports: EMS, Family, Police History Limitations: Reports: Altered Mental Status, Uncooperative - History of Present Illness INITIAL COMMENTS - FREE TEXT/NARRATIVE: 39-year-old male with no schizoaffective disorder and schizophrenia, was found in someone's backyard, unkempt, confused, and wearing a plastic bag on the top of his head. It took EMS 20 minutes just to convince him to get on the ambulance. He is basically noncommunicative at first. He is unable to talk about what medications he is supposed to be taking. His family did come in to help us with history, they have not heard from him in several months. Last they heard he was living in a tent in someone's backyard. He does have a history of drug abuse and noncompliance. Onset: Unknown/Unsure Associated Symptoms: Reports: Confusion. Denies: Fever/Chills, Loss of Appetite, Nausea/Vomiting, Shortness of Breath - Related Data Allergies Allergy/AdvReac Type Severity Reaction Status Date / Time risperidone [From Risperdal] Allergy Rash Verified 12/16/19 20:03 metal Allergy Cannot Uncoded 12/16/19 20:03 Remember Home Meds: Home Meds . [Unable to Verify Home Med List] 12/16/19 [History] Past Medical History - Past Health History Medical/Surgical History: Denies Medical/Surgical History Gastrointestinal History: Reports: Other (See Below) Other Gastrointestinal History: states chrons Musculoskeletal History: Reports: Fracture Other Musculoskeletal History: ankle Neurological History: Reports: Concussion, Migraines Psychiatric History: Reports: ADHD, Anxiety, Bipolar, Depression, Mood Swings, Panic Attack, Psych Hospitalization(s), Psychosis, Schizophrenia, Suicidal Ideation Endocrine/Metabolic History: Reports: Hyperparathyroidism Hematologic History: Reports: Anemia - Infectious Disease History Infectious Disease History: Reports: Other (See Below) Other Infectious Disease History: unknown - Past Surgical History GI Surgical History: Reports: Hernia Repair/Other Social & Family History - Caffeine Use Caffeine Use: Reports: Coffee, Soda - Recreational Drug Use Recreational Drug Use: Yes ED ROS GENERAL - Review of Systems Review Of Systems: See Below Constitutional: Denies: Fever, Chills Respiratory: Denies: Shortness of Breath Cardiovascular: Denies: Chest Pain GI/Abdominal: Denies: Nausea, Vomiting Skin: Reports: Other (Skin is dirty and he has numerous excoriations on the lower extremities) Neurological: Reports: Confusion. Denies: Headache ED EXAM, BEHAVIORAL HEALTH - Physical Exam Exam: See Below Exam Limited By: No Limitations General Appearance: Alert, No Apparent Distress Eye Exam: Bilateral Eye: Normal Inspection Head: Atraumatic Respiratory/Chest: Lungs Clear Cardiovascular: Regular Rate, Rhythm Extremities: Other (A few scattered excoriations on the lower extremities, very dirty feet). No: Pedal Edema Neurological: Alert, Disoriented to Place, Disoriented to Time, Inattentive. No: Disoriented to Person Psychiatric: Flat Affect, Disoriented, Inattentive Skin Exam: Warm, Dry COURSE, BEHAVIORAL HEALTH COMP - Course Vital Signs: Last Vital Signs Temp 97.6 F 12/17/19 06:38 Pulse 85 12/17/19 06:38 Resp 14 12/17/19 06:38 BP 143/91 H 12/17/19 06:38 Pulse Ox 96 12/17/19 06:38 Orders, Labs, Meds: Laboratory Tests 12/16/19 12/16/19 12/16/19 Range/Units 20:09 20:09 21:38 WBC 12.3 H (4.5-11.0) K/uL RBC 5.31 (4.30-5.90) M/uL Hgb 15.7 H (12.0-15.0) g/dL Hct 46.1 (40.0-54.0) % MCV 87 (80-98) fL MCH 30 (27-31) pg MCHC 34 (32-36) % Plt Count 379 (150-400) K/uL Neut % (Auto) 74 H (36-66) % Lymph % (Auto) 14 L (24-44) % [place] % (Auto) 11 H (2-6) % Eos % (Auto) 0 L (2-4) % Baso % (Auto) 1 (0-1) % Sodium 133 L (140-148) mmol/L Potassium 3.2 L (3.6-5.2) mmol/L Chloride 95 L (100-108) mmol/L Carbon Dioxide 21 (21-32) mmol/L Anion Gap 20.2 H (5.0-14.0) mmol/L BUN 16 D (7-18) mg/dL Creatinine 1.3 (0.8-1.3) mg/dL Est Cr Clr Drug Dosing 75.53 mL/min Estimated GFR (MDRD) > 60 (>60) Glucose 91 (74-106) mg/dL Calcium 9.5 (8.5-10.1) mg/dL Total Bilirubin 1.3 H D (0.2-1.0) mg/dL AST 31 (15-37) U/L ALT 28 (12-78) U/L Alkaline Phosphatase 97 (46-116) U/L Total Protein 8.1 (6.4-8.2) g/dL Albumin 4.6 (3.4-5.0) g/dL Globulin 3.5 (2.3-3.5) g/dL Albumin/Globulin Ratio 1.3 (1.2-2.2) Urine Opiates Screen Negative (NEGATIVE) Ur Oxycodone Screen Negative (NEGATIVE) Urine Methadone Screen Negative (NEGATIVE) Ur Propoxyphene Screen Negative (NEGATIVE) Ur Barbiturates Screen Negative (NEGATIVE) Ur Tricyclics Screen Negative (NEGATIVE) Ur Phencyclidine Scrn Negative (NEGATIVE) Ur Amphetamine Screen Negative (NEGATIVE) U Methamphetamines Scrn Negative (NEGATIVE) Urine MDMA Screen Negative (NEGATIVE) U Benzodiazepines Scrn Negative (NEGATIVE) U Cocaine Metab Screen Negative (NEGATIVE) U Marijuana (THC) Screen Negative (NEGATIVE) Re-Assessment/Re-Exam: CBC CMP and urine drug screen were obtained. Over the course of an hour and a half the patient started to become more communicative and cooperative. Still very disjointed thinking and transient thought processes. His urine drug screen returned normal and labs were basically normal as well. This patient will need to be admitted for acute psychiatric eval and stabilization. Patient was accepted at [facility] inpatient psychiatric facility in [place], he was placed on a 72-hour hold. Transportation per EMS. 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 Sepsis Event Note (ED) - Evaluation Sepsis Screening Result: No Definite Risk - Focused Exam Vital Signs: Vital Signs Temp Pulse Resp BP Pulse Ox 12/17/19 06:38 97.6 F 85 14 143/91 H 96
[2019-12-17 06:49] VITALS: BP 143/91; PULSE 85
== END 2019-12-17 06:44 | disposition other institution (70) ==
LOC: JP.ED 19:54
DX: F20.1 Disorganized schizophrenia (principal); S80.812A Abrasion, left lower leg, initial encounter; S80.811A Abrasion, right lower leg, initial encounter; Z91.09 Other allergy status, other than to drugs and biological substances; Z88.8 Allergy status to other drugs, medicaments and biological substances; X58.XXXA Exposure to other specified factors, initial encounter
CPT/HCPCS: 36415; 80053; 80305-QW; 85025; 99283; 99285